=== PATIENT | male | born 1945 | race Caucasian/White ===

== ENCOUNTER 2016-07-18 13:25 | Inpatient (IN) | payer MEDICARE ==
--- NOTE | ~2016-07-18 | OP ---
Record Of [address] [place]. [address] NAME: MICHAELA CHILDERS : 47 STATUS : ADM IN PAT#: [id number] AGE: 70 ADM/REG DATE : 07/18/16 MR#: [id number] REPORT SERV DATE: 07/22/16 DICTATED BY: LEE HOLLOWAY DATE: 07/21/16 REPORT STATUS : Draft TRANSCRIBED BY: MODL DATE: 07/21/16 DATE OF PROCEDURE: 07/21/2016 TIRE STRIPPER: Radha Miller. ANESTHESIOLOGIST: Dr. Javy Costa. PREOPERATIVE DIAGNOSES: 1. Non-ST segment elevation myocardial infarction. 2. Hypertension. 3. Three-vessel coronary disease. 4. Prior coronary artery bypass grafting in 1997. 5. Hyperlipidemia. POSTOPERATIVE DIAGNOSES: 1. Non-ST segment elevation myocardial infarction. 2. Hypertension. 3. Three-vessel coronary disease. 4. Prior coronary artery bypass grafting in 1997. 5. Hyperlipidemia. OPERATION PROCEDURE PERFORMED: 1. Redo sternotomy. 2. Extracorporeal circulation. 3. Lysis of dense pericardial adhesions. 4. Urgent coronary artery bypass grafting x2, left internal mammary artery or left anterior descending, right internal mammary artery to right coronary artery. 5. LEXIS. 6. Rigid external fixation of sternum using the SternaLock Ryne system and Prevena dressing placement. COMPLICATIONS: None. TUBES AND DRAINS: A 24-Danish Michael to the left pleural space. A 24-Danish Michael to the right pleural space. A 32-Danish anterior mediastinal chest tube. Atrial and ventricular wires. POSTOPERATIVE CONDITION: Weaned on dobutamine. TOTAL CROSS-CLAMP: 35 minutes. TOTAL CARDIOPULMONARY BYPASS TIME: 100 minutes. TRANSESOPHAGEAL ECHO: Showed EF approximately 50%-55%. No AI, no , no MR. INTRAOPERATIVE FINDINGS: Record Of [address] [place]. [address] NAME: MICHAELA CHILDERS : 46 STATUS : ADM IN PAT#: [id number] AGE: 70 ADM/REG DATE : 07/18/16 MR#: [id number] REPORT SERV DATE: 07/22/16 DICTATED BY: LEE HOLLOWAY DATE: 07/21/16 REPORT STATUS : Draft TRANSCRIBED BY: MODL DATE: 05/23/17 1. There were dense pericardial adhesions. There were excellent DESTIN and BRITT grafts. The old grafts were seen as follows. The reversed greater saphenous vein graft to LAD which was completely occluded, totally occluded at its origin, and the reversed greater saphenous vein graft to what appeared to be obtuse marginal. 2. This graft was patent and was not disturbed during the bypass. DETAILS OF CARDIOPULMONARY BYPASS GRAFTIN. Left internal mammary artery to left anterior descending. This was 1.75 mm target. 2. DESTIN to distal RCA. This was a 2.5 mm target with some diffuse disease, thickened wall. There were excellent Doppler signals both pre and post protamine. DETAILS OF STERNAL PLATING: Rigid external fixation of the sternum was performed after sternal closure with stainless steel sternal wires. One 100-degree SternaLock Ryne plate was placed on the manubrium and anchored with four 16 mm screws and two X-plates were placed on the body of the sternum and anchored with eight 16 mm screws apiece. INDICATIONS FOR PROCEDURE: Mr. Childers is a 70-year-old gentleman, who underwent coronary artery bypass grafting in 1997 with two-vessel bypass. He did well until the weekend prior to his operation when he presented with acute chest pain and underwent coronary catheterization for troponin elevation, acute coronary syndrome. He was found to have a completely occluded saphenous vein graft to what we later determined was this LAD, a patent saphenous vein graft to his obtuse marginal system, and a 90% ostial RCA and a 90% left main, with a 90% proximal LAD lesion as well. Risks, benefits, alternatives were discussed with the patient including but not limited to, bleeding, infection, stroke, , heart attack, need for future operations. All questions were answered. The STS risk was calculated and discussed with the patient. Risk mortality less than 5%, total risk complications less than 20% were discussed with the patient. DETAILS OF PROCEDURE: The patient was brought to the operating room, placed supine on the operating room table. After satisfactory induction of general endotracheal anesthesia, was prepped and draped in the usual sterile fashion. A right femoral A-line and left femoral venous sheaths were placed percutaneously using modified Seldinger technique, anchored into position. The existing sternotomy scar was open. Skin and subcutaneous tissues were divided using electrocautery down to the sternal wires. Sternal wires were dissected out, grasped, elevated and cut and then removed using sternal wire drivers. Sternum was then opened in the midline using the oscillating saw. Hemostasis was obtained. The sternal edges were then gently elevated and dissected off the underlying contents of the mediastinum, enough to where a sternal retractor could be placed. Once this was done, dissection was carried out down to the pericardium to develop the pericardial sac and the contents of the pericardium. Dense pericardial adhesions were lysed, starting at the diaphragmatic surface of the heart and working my way up along the right atrial side up to the aorta. The two bypass grafts were visualized and the ascending aorta was swept clear of adhesed tissue until appropriate placement of cannulation was found in appropriate side, placed on the sidewall of the right atrium. At this point, the internal mammary arteries were harvested in a pedicle fashion. The Rultract retractor was placed first on the left and the internal mammary artery was harvested from its takeoff from the subclavian vein to the bifurcation of the diaphragm. It was infiltrated with papaverine. Attention was then Record Of Operation [address] [place]. [address] NAME: MICHAELA CHILDERS : 47 STATUS : ADM IN [facility]#: [id number] AGE: 70 ADM/REG DATE : 07/18/16 MR#: [id number] REPORT SERV DATE: 07/22/16 DICTATED BY: LEE HOLLOWAY DATE: 07/21/16 REPORT STATUS : Draft TRANSCRIBED BY: BERLIN DATE: 07/21/16 turned to the right chest, the internal mammary artery was harvested from its takeoff under the subclavian vein to the bifurcation of the diaphragm. Systemic heparinization was achieved. After 3 minutes, the pedicle was clipped and divided. The bifurcation of the diaphragm wrapped in a papaverine soaked sponge. Attention was turned to the left and the same was done. Sternal retractor was placed. The ascending aortic cannulation was achieved through dual pursestring at the base of the innominate artery. Dual stage venous cannula was placed through pursestring in the right atrial side wall. Antegrade root vent cardioplegia tack was placed and cardiopulmonary bypass was initiated after documentation of an adequate ACT. Further lysis of adhesions was carried out in order to free the heart from its pericardial adhesions. Once enough was done, to be able to identify the left anterior descending and the RCA, cross-clamp was brought up. The heart was arrested with cold antegrade cardioplegia. The right internal mammary artery was brought down along the right atrial side wall and was anastomosed to the distal RCA using 8-0 Surgipro. Bulldog was removed from the graft and there was excellent flow in the graft. The bulldog was replaced. The cardioplegia was readministered and the internal mammary artery on the left was brought down through a widening in the pericardium and anastomosed to the left anterior descending using 8-0 Surgipro. The pedicle of the grafts were attached to the epicardium in two places using 6-0 Prolene. Bulldogs were removed. There was excellent flow in both grafts. Cross- clamp was removed. Atrial and ventricular pacing wires were placed and exteriorized. The heart returned to spontaneous sinus rhythm and the patient was able to be weaned from cardiopulmonary bypass on 5 mcg/kilogram/minute of dobutamine, rapidly moving down to 2.5. The protamine was administered. The patient was decannulated. All cannulation sites were oversewn with 4-0 Prolene. Hemostasis was obtained. A 32-Danish chest tube was placed under the sternum. Two 24-Danish Michael drains were placed, one in each pleural space and exteriorized. The hemostasis was obtained along the chest wall and in the mediastinum. The thymic tissue was loosely reapproximated over the ascending aorta. There was no real tissue to pull back together over the right ventricle. The sternum was reapproximated using eight stainless steel sternal wires, some of these were double wires. The pectoral flaps were raised to the edge of the sternum and 3 Biomet SternaLock Ryne plates were placed, one 100- degree plate on the manubrium, and two X-plates placed on the body of the sternum between the sternal wires. Clavipectoral fascia was reapproximated using running #1 StrataFix. Subcutaneous tissue was closed using running #1 StrataFix. Prevena dressing was placed. The patient was transferred to CVICU in critical, stable condition. HAYLIE/MODL Lee Holloway MD / [id number] CC: Lee Holloway MD
--- NOTE | ~2016-07-18 | CN ---
Consultation Report [facility] [address] [place]. [address] NAME: MICHAELA CHILDERS : 47 STATUS : ADM IN PAT#: [id number] AGE: 70 ADM/REG DATE : 07/18/16 MR#: [id number] REPORT SERV DATE: 07/19/16 DICTATED BY: CASSANDRA KLINE DATE: 07/19/16 REPORT STATUS : Draft TRANSCRIBED BY: MODL DATE: 07/19/16 CONSULTATION REPORT DATE OF CONSULTATION: 07/18/2016 REASON FOR CONSULTATION: Multivessel coronary artery disease. HISTORY OF PRESENT ILLNESS: This is a pleasant 70-year-old male with a history of coronary artery disease, status post coronary artery bypass grafting in [address] Trinh, which was thought to be two vessels, but no op note is available to confirm this. The patient has been in his normal state of health until around last month, when he started experiencing some chest pain. These symptoms continued until they worsened yesterday, prompting his visit to the emergency room. In the emergency room, he was found to have an initial troponin of 2.4, which later royal to over 36 consistent with non-ST elevation [place]. The patient was taken for cardiac catheterization last night, and found to have multivessel disease with patent SVG to his obtuse marginal and occluded SVG graft at its origin, 90% left main coronary artery stenosis, 99% proximal LAD, 100% occlusion to the left circ, 90% occlusion of the ramus, and 90% proximal RCA with ejection fraction around 40% and wall motion abnormality of the left ventricle with no mention of valvular abnormality. CT Surgery was consulted for evaluation of redo coronary artery bypass grafting. Currently, the patient feels well with no complaints. He did experience some chest pain last night, which resolved with morphine. His vital signs are stable and labs appear to be okay. PAST MEDICAL HISTORY: High blood pressure, coronary artery disease, hyperlipidemia, and osteoarthritis. PAST SURGICAL HISTORY: Left knee replaced, CV x2 in 1997, and inguinal hernia repair. SOCIAL HISTORY: He is retired. Lives alone, with two grown children. No tobacco abuse, alcohol abuse, or use of illicit drugs. FAMILY HISTORY: Reviewed and noncontributory. ALLERGIES: HE IS ALLERGIC TO CODEINE. HOME MEDICATIONS: Aspirin 81 mg per day, vitamin D3 1000 units p.o. daily, CoQ10 of 200 mg p.o. daily, Cardura 4 mg at bedtime, Hyzaar one tab p.o. daily, Singulair 10 mg p.o. daily as needed, fish oil 1000 mg p.o. daily, Pravachol 40 mg p.o. at bedtime, Zantac 150 mg p.o. daily as needed and Nasacort one spray nasally daily. REVIEW OF SYSTEMS: A 10-point review of systems was obtained and is negative other than HPI. LABS: White blood cell count 8.9, hemoglobin 15.3, hematocrit 44.7, and platelets 206. Consultation Report [place] [id number] [facility] [place]. [address] NAME: MICHAELA CHILDERS : 47 STATUS : ADM IN [facility]#: [id number] AGE: 70 ADM/REG DATE : 07/18/16 MR#: [id number] REPORT SERV DATE: 07/19/16 DICTATED BY: CASSANDRA KLINE DATE: 07/19/16 REPORT STATUS : Draft TRANSCRIBED BY: BERLIN DATE: 07/19/16 Sodium 141, potassium 4.4, chloride 109, bicarbonate 29, BUN 14, creatinine 0.9, and glucose 119. PHYSICAL EXAMINATION: VITAL SIGNS: Today temperature 98.3, heart rate 61, blood pressure 110/59, respiratory rate 16, and O2 saturation 97% on 2 L. GENERAL: Pleasant, fit, male in no acute distress. NEURO: Alert and oriented x3. Pupils are equal, round, and reactive to light and accommodation. He exhibits equal strength at bilateral upper extremities and bilateral lower extremities. HEENT: Head normocephalic and atraumatic. Sclerae clear. Nose midline with no abnormalities. Good dentition overall. Ears with no abnormalities. NECK: Supple. No thyromegaly or lymphadenopathy. CARDIAC: S1, S2. No murmurs, rubs, or gallops. Regular rate and rhythm with no bruits appreciated upon auscultation of carotids. LUNGS: Clear to auscultation bilaterally with normal effort. ABDOMEN: Soft, nontender, with active bowel sounds. EXTREMITIES: Free of cyanosis or clubbing. He has trace bilateral lower extremity edema. ASSESSMENT/PLAN: This is a pleasant 70-year-old male with a history of coronary artery disease, status post coronary artery bypass grafting in 1997, which was thought to be two vessel, but we do not have an op note in our system at this time. We will look for that at in our office on Wednesday. The patient has been in his normal state of health until recently, when he started experiencing chest pain. Came in with NSTEMI yesterday and now found to have a significant three-vessel disease with decreased EF and wall motion abnormality of the left ventricle. Troponin elevated at 36. Needs a bypass grafting, but due to significance of infarction it was thought to be best to wait a couple of days before proceeding. Discussed the plan of care with Dr. Walker and Dr. Wesley. Dr. Wesley reviewed the imaging. We would like to get an echocardiogram and carotid ultrasound as well as a contrasted CT scan of the chest before proceeding with surgery. We will plan surgical intervention for sometime [id number] week. We appreciate the consultation. Please let us know if we could be of any further assistance. NEYDA/BERLIN Cassandra Kline NP / [id number] CC: Sudhakar Walker M.D.
--- NOTE | ~2016-07-18 | PRECARD ---
H&P PRE [facility] [address] [place]. [address] NAME: MICHAELA CHILDERS : 47 STATUS : ADM IN [facility]#: [id number] AGE: 70 ADM/REG DATE : 07/18/16 MR#: [id number] REPORT SERV DATE: 07/18/16 DICTATED BY: ZULEIKA RAMIREZ DATE: 07/18/16 REPORT STATUS : Draft TRANSCRIBED BY: BERLIN DATE: 07/18/16 DATE OF ADMISSION: 07/18/2016 TOBACCO WEIGHER: Unknown. CHIEF COMPLAINT: Chest pain. REASON FOR ADMISSION: Chest pain. SOURCE: Patient and chart. HISTORY OF PRESENT ILLNESS: Mr. Childers is a very pleasant 70-year-old white man with a history of coronary artery disease, status post coronary bypass grafting in [address] Trinh at [facility] possibly to three vessels, but op report not available. He was in his usual state of health until 8:30 this morning, when he developed chest pain just sitting in his chair at home, up to 9/10 in severity. He has been having intermittent chest pains over the past month or so. He did not have any associated nausea, vomiting, dyspnea, or diaphoresis. He came to [facility] ER and had an EKG. After his second EKG, code STEMI was called, and the greenhouse laborer was activated. Upon my review, he did not have ST elevation, but did have elevated troponin and T-wave inversion, and evidence of non ST- segment elevation myocardial infarction. He was brought to the cardiac catheterization laboratory for cardiac catheterization. His pain was nearly resolved at the time of the procedure. REVIEW OF SYSTEMS: All other systems are negative. ALLERGIES: CODEINE. MEDICATIONS: As per his home list, not yet available. CARDIAC RISK FACTORS: Include hypertension and cholesterol. Denies diabetes, tobacco, or family history. SOCIAL HISTORY: The patient lives in [place], [place]. He is single. He has two children, alive and well. He is retired. FAMILY HISTORY: Negative for coronary artery disease at young age. PAST MEDICAL HISTORY: Significant for coronary artery disease, status post coronary artery bypass grafting [place] [address] Trinh at [facility]. Status post left knee replacement, 12/2012. Inguinal herniorrhaphy, 11/2013. PHYSICAL EXAMINATION: GENERAL: He is a well-developed, well-nourished, elderly white man, in no acute distress. VITAL SIGNS: Stable. Grossly afebrile. H&P PRE [address] [address] NAME: MICHAELA CHILDERS : 47 STATUS : ADM IN PAT#: [id number] AGE: 70 ADM/REG DATE : 07/18/16 MR#: [id number] REPORT SERV DATE: 07/18/16 DICTATED BY: ZULEIKA RAMIREZ DATE: 07/18/16 REPORT STATUS : Draft TRANSCRIBED BY: EBRLIN DATE: 07/18/16 HEENT: Sclerae anicteric. Lips without cyanosis. NECK: Carotids 2+ and symmetrical. No JVD. No thyromegaly. LUNGS: Clear anteriorly. No use of accessory muscles. HEART: Regular rate and rhythm. Without murmur, gallop, or rub. ABDOMEN: Positive bowel sounds. Soft, nontender. EXTREMITIES: Pulses 2+ and symmetrical. No cyanosis, clubbing, or edema. BACK: No CVA tenderness. MUSCULOSKELETAL: Good tone. NEURO: Alert and oriented x3. IMAGING: EKG reveals sinus rhythm with septal T-wave inversion. LABS: Remarkable for troponin of 2.4 and glucose approximately 120. Creatinine was normal. IMPRESSION: 1. Non ST-segment elevation myocardial infarction. There is no ST elevation to my review of EKG. 2. Now pain-free. 3. Coronary artery disease, status post coronary artery bypass grafting in [address] [facility] [address] Trinh. Report not available. 4. Hypertension. 5. Hyperlipidemia. 6. Elevated nonfasting glucose. RECOMMENDATIONS: 1. Emergent cardiac catheterization grafts and possible angioplasty already done. See report. 2. Aspirin, nitrate, heparin. 3. Beta-jatin therapy. 4. Statin therapy. 5. Evaluate for a redo coronary bypass grafting possibly using HILTON conduits. Consult CV Surgery. Check carotid ultrasound. Check urinalysis. 6. See orders. MITCH/BERLIN Zuleika Ramirez M.D. / [id number] CC: Zuleika Ramirez M.D. Gil Peterson MD
--- NOTE | ~2016-07-18 | DS ---
Discharge Summary [facility] [address] [facility] [place]. [address] NAME: MICHAELA CHILDERS : 47 STATUS : DIS IN PAT#: [id number] AGE: 70 ADM/REG DATE : 07/18/16 MR#: [id number] REPORT SERV DATE: 08/04/16 DICTATED BY: DASH HOLLOWAY DATE: 08/03/16 REPORT STATUS : Draft TRANSCRIBED BY: BERLIN DATE: 08/03/16 Data Collection from hospitalization DISCHARGE DIAGNOSES: 1. Coronary artery disease. 2. Dhw-JB-vjlgykwqk myocardial infarction. 3. Hypertension. 4. Hyperlipidemia. 5. Osteoarthritis. CONSULTATION: Dr. Sudhakar Walker. PROCEDURES PERFORMED: 1. Cardiac catheterization and percutaneous coronary intervention, 07/18/2016. 2. Redo sternotomy extracorporeal circulation; lysis of dense pericardial adhesions; urgent coronary artery bypass grafting x2 with BRITT to the LAD; right internal mammary artery to the right coronary artery; transesophageal echocardiogram; rigid external fixation of sternum using the SternaLock Ryne System and Prevena dressing placement, 07/21/2016. 3. CTA of the chest on 07/19/2016. 4. Carotid blood flow study, 07/20/2016. 5. Vein mapping of the bilateral lower extremities, 07/20/2016. DISCHARGE MEDICATIONS: Halfprin 81 mg daily, Lipitor as instructed, vitamin D3 1000 units daily, Plavix 75 mg daily, CoQ10 200 mg daily, [place] 10/325 one tablet every six hours as needed, Lopressor 12.5 mg twice a day, Singulair 10 mg daily as needed, fish oil 1000 mg daily, Zantac 150 mg daily as needed, Nasacort AQ one spray daily. He was instructed not to continue doxazosin, pravastatin, losartan/hydrochlorothiazide. CONDITION AT DISCHARGE: Stable. DISPOSITION: The patient was discharged home on a low-sodium, low-cholesterol, cardiac diet with activities as instructed. He would follow up with me four weeks following discharge. He would follow up with Dr. Sudhakar Walker, 09/04/2016. HOSPITAL COURSE: This is a 70-year-old man, who has a history of coronary artery disease and is status post coronary artery bypass grafting in [address]h, possibly to three- vessels. This op report was not available. He had been in his usual state of health until the morning of this admission, when he developed chest pain sitting in his chair at home, up to 9/10 in severity. He had been having intermittent chest pain over the past month or so. He did not have any associated nausea, vomiting, dyspnea, or diaphoresis. He came to the [facility] emergency room and had an EKG. After his second EKG, a code STEMI was called. The supervisor labor gang was activated. He was seen by Dr. Sudhakar Walker. On his review, the patient did not have ST elevation, but he did have elevated troponin and T-wave inversion and evidence of ymt-KV-bzpjkrs elevation myocardial infarction. His chest pain had nearly resolved at the time of the procedure. He was admitted to the hospital for further evaluation and treatment. Discharge Summary [place] [id number] [facility] [place]. [address] NAME: MICHAELA CHILDERS : 47 STATUS : DIS IN PAT#: [id number] AGE: 70 ADM/REG DATE : 07/18/16 MR#: [id number] REPORT SERV DATE: 08/04/16 DICTATED BY: DASH HOLLOWAY DATE: 08/03/16 REPORT STATUS : Draft TRANSCRIBED BY: BERLIN DATE: 08/03/16 Upon admission, he was taken to the cardiac supervisor labor gang, where he underwent the above-mentioned procedure by Dr. Sudhakar Walker. He tolerated this well and there were no complications. The patient was found to have multivessel disease with patent saphenous vein graft to the obtuse marginal and occluded saphenous vein graft at its origin, 90% left main coronary artery stenosis, 99% proximal LAD, 100% occlusion to the left circumflex, 90% occlusion of the ramus, and 90% proximal RCA with ejection fraction around 40% and wall motion abnormality of the left ventricle with no mention of valvular abnormality. It was felt that the patient would need to undergo redo coronary artery bypass grafting. He had had some chest pain during the night, which resolved with morphine. The following day, a CTA of the chest was performed. He was in a sinus rhythm. Hemoglobin A1c was checked and was normal. Blood pressure was under good control. On 07/20/2016, a carotid blood flow study was performed as well as vein mapping of the bilateral lower extremities. Plans were being made to proceed with surgical intervention. On 07/21/2016, he had no new issues. He had no complaints. He denied chest pain or pressure, shortness of breath or palpitations. Hemoglobin A1c was 6.0. Glucose levels were elevated. Sliding scale insulin level 1 was started. On postop day one, he was up sitting in a chair. He was doing well. He did have some sternal discomfort, but otherwise was comfortable. His lungs were clear. Resendez catheter was removed. We encouraged him to mobilize. He was encouraged to increase his activity. On postop day two, his sternum was still sore. He did have bibasilar atelectasis. On his chest x-ray, metoprolol was continued. White count was 13.6. He continued to progress. Discharge planning was performed. We encouraged him to use pulmonary toilet and use incentive spirometry. Diuresis was being performed. On 07/25/2016, he had no complaints. Discharge instructions were given. Due to his improved and stable condition, he was discharged home with the above-stated instructions. Information collected by: Kelly Bosch I submit the above information as my discharge summary. TG/MODL Dash Holloway MD / [id number] CC: Xavi Carson MD
[~2016-07-18 13:25] MED LIST: ACET500CAP PO; ALEVE220 MG PO; ASAB PO; BENICAR20 PO; C5 PO; CARDU4 PO; CO Q-10100 MG PO; CO Q-10200 MG PO; DIL2TAB PO; FISH-EPA1000 MG PO; HALF81 PO; HYZAAR 100/25 T1 TAB PO; MOBIC15 MG PO; NASACORTAQ NAS; PRAVACHOL40 MG PO; SINGULAIR1 PO; SUPER B-100 OR; VITAMIN D31000 UNIT PO; ZANTAC 150 PO
[2016-07-18 13:33] LABS: BASOPHILS 0.2 %; BASOPHILS ABSOLUTE 0.02 10/3/uL (0.0-0.16); EOSINOPHILS 0.3 %; EOSINOPHILS ABSOLUTE 0.03 10/3/uL (0.0-0.53); HEMATOCRIT 45.1 % (40.0-51.0); HEMOGLOBIN 15.7 g/dL (13.6-17.8); IMMATURE GRANULOCYTES 0.4 %; IMMATURE GRANULOCYTES ABSOLUTE 0.04 10/3/uL (0.0-0.11); LYMPHOCYTES 11.1 %; LYMPHOCYTES ABSOLUTE 1.12 10/3/uL (0.67-4.30); MEAN CORPUS HGB CONC 34.8 g/dL (32.0-36.0); MEAN CORPUSCULAR HEMOGLOB 32.6 pg (26.0-34.0); MEAN CORPUSCULAR VOLUME 93.6 fL (80-100); MEAN PLATELET VOLUME 10.4 fL (9.2-13.0); MONOCYTES 5.2 %; MONOCYTES ABSOLUTE 0.53 10/3/uL (0.21-1.20); NEUTROPHILS 82.8 %; NEUTROPHILS ABSOLUTE 8.38 10/3/uL (2.02-8.40); PLATELET COUNT 220 10/3/uL (150-400); RBC DISTRIBUTION WIDTH 12.8 % (12.0-16.0); RED CELL COUNT 4.82 10/6/uL (4.7-6.1)
[2016-07-18 13:34] LABS: MANUAL DIFF NO %; WHITE BLOOD CELLS 10.1 10/3/uL (4.5-10.5)
[2016-07-18 13:41] LABS: INTERNATIONAL NORMAL RATI 1.1 UNITS (-); PARTIAL THROMBO TIME 28.8 SEC (22.5-37.2); PROTIME (NOT ORD) 14.3 SEC (12.0-14.5)
[2016-07-18 13:49] LABS: BUN (BLOOD UREA NITROGEN) 14 MG/DL (6-23); CALCIUM, SERUM 8.7 MG/DL (8.5-10.4); CHLORIDE, SERUM 106 MMOL/L (96-112); CO2 (CARBON DIOXIDE) 28 MMOL/L (24-34); CREATININE 0.86 MG/DL (0.70-1.30); GFR AFRICAN AMERICAN 103 ML/MIN (>=60); GFR NON AFRICAN AMERICAN 88 ML/MIN (>=60); GLUCOSE, SERUM 127 MG/DL (60-99); POTASSIUM, SERUM 4.1 MMOL/L (3.5-5.3); SODIUM, SERUM 140 MMOL/L (135-148)
[2016-07-18 13:51] LABS: CHEST PAIN PROFILE TAT 0 Hrs 21 Mins; TROPONIN I 2.59 NG/ML (<0.05)
[2016-07-18 17:47] LABS: CK-MB 61.2 NG/ML
[2016-07-18 17:48] LABS: CKMB INDEX (NOT ORD) 10.8
[2016-07-18 22:27] LABS: ASCORBIC ACID (UR NOT ORDER) NEG (NEG); BILIRUBIN, URINE NEGATIVE (NEG); KETONE, URINE NEGATIVE (NEG); LEUKOCYTE ESTERASE(NOT OR NEG (NEG); WBC (NOT ORDERED) (RFLEX) < 1 (0-5)
[2016-07-19 04:14] LABS: BASOPHILS 0.2 %; BASOPHILS ABSOLUTE 0.02 10/3/uL (0.0-0.16); EOSINOPHILS 1.7 %; EOSINOPHILS ABSOLUTE 0.15 10/3/uL (0.0-0.53); HEMATOCRIT 44.7 % (40.0-51.0); HEMOGLOBIN 15.3 g/dL (13.6-17.8); IMMATURE GRANULOCYTES 0.3 %; IMMATURE GRANULOCYTES ABSOLUTE 0.03 10/3/uL (0.0-0.11); LYMPHOCYTES 24.8 %; LYMPHOCYTES ABSOLUTE 2.21 10/3/uL (0.67-4.30); MEAN CORPUS HGB CONC 34.2 g/dL (32.0-36.0); MEAN CORPUSCULAR HEMOGLOB 32.4 pg (26.0-34.0); MEAN CORPUSCULAR VOLUME 94.7 fL (80-100); MEAN PLATELET VOLUME 10.6 fL (9.2-13.0); MONOCYTES 7.7 %; MONOCYTES ABSOLUTE 0.69 10/3/uL (0.21-1.20); NEUTROPHILS 65.3 %; NEUTROPHILS ABSOLUTE 5.81 10/3/uL (2.02-8.40); PLATELET COUNT 206 10/3/uL (150-400); RBC DISTRIBUTION WIDTH 12.9 % (12.0-16.0); RED CELL COUNT 4.72 10/6/uL (4.7-6.1); WHITE BLOOD CELLS 8.9 10/3/uL (4.5-10.5)
[2016-07-19 04:15] LABS: MANUAL DIFF NO %
[2016-07-19 04:32] LABS: A/G RATIO 1.1 (0.7-1.9); ALBUMIN 3.4 G/DL (3.5-5.0); ALKALINE PHOSPHATASE 70 U/L (45-117); BUN (BLOOD UREA NITROGEN) 14 MG/DL (6-23); CALCIUM, SERUM 8.5 MG/DL (8.5-10.4); CHLORIDE, SERUM 109 MMOL/L (96-112); CHOL/HDL RATIO(NOT ORDER) 3.3 (0-5); CHOLESTEROL 131 MG/DL (< 200); CO2 (CARBON DIOXIDE) 29 MMOL/L (24-34); CPK (IF ELEVATED MB BANDS) 739 U/L (0-200); CREATININE 0.94 MG/DL (0.70-1.30); GFR AFRICAN AMERICAN 95 ML/MIN (>=60); GFR NON AFRICAN AMERICAN 82 ML/MIN (>=60); GLOBULIN 3.1 G/DL (2.5-4.1); GLUCOSE, SERUM 119 MG/DL (60-99); HDL CHOLESTEROL 40 MG/DL (> 39); LDL CHOLESTEROL 68 MG/DL (< 130); NON-HDL CHOLESTEROL 91 MG/DL (< 160); POTASSIUM, SERUM 4.4 MMOL/L (3.5-5.3); SGOT(AST) 132 U/L (5-40); SGPT(ALT) 41 U/L (5-65); SODIUM, SERUM 141 MMOL/L (135-148); TOTAL BILIRUBIN 1.1 MG/DL (0-1.2); TOTAL PROTEIN 6.5 G/DL (6.0-8.5); TRIGLYCERIDE 117 MG/DL (< 150)
[2016-07-19 05:59] LABS: CK-MB 77.4 NG/ML; CKMB INDEX (NOT ORD) 10.5
[2016-07-20 04:45] LABS: BASOPHILS 0.1 %; BASOPHILS ABSOLUTE 0.01 10/3/uL (0.0-0.16); EOSINOPHILS 2.8 %; EOSINOPHILS ABSOLUTE 0.19 10/3/uL (0.0-0.53); HEMATOCRIT 45.5 % (40.0-51.0); HEMOGLOBIN 15.6 g/dL (13.6-17.8); IMMATURE GRANULOCYTES 0.3 %; IMMATURE GRANULOCYTES ABSOLUTE 0.02 10/3/uL (0.0-0.11); LYMPHOCYTES 23.1 %; LYMPHOCYTES ABSOLUTE 1.59 10/3/uL (0.67-4.30); MEAN CORPUS HGB CONC 34.3 g/dL (32.0-36.0); MEAN CORPUSCULAR HEMOGLOB 32.6 pg (26.0-34.0); MEAN CORPUSCULAR VOLUME 95.2 fL (80-100); MEAN PLATELET VOLUME 10.8 fL (9.2-13.0); MONOCYTES 9.1 %; MONOCYTES ABSOLUTE 0.63 10/3/uL (0.21-1.20); NEUTROPHILS 64.6 %; NEUTROPHILS ABSOLUTE 4.45 10/3/uL (2.02-8.40); PLATELET COUNT 208 10/3/uL (150-400); RBC DISTRIBUTION WIDTH 12.6 % (12.0-16.0); RED CELL COUNT 4.78 10/6/uL (4.7-6.1); WHITE BLOOD CELLS 6.9 10/3/uL (4.5-10.5)
[2016-07-20 04:46] LABS: MANUAL DIFF NO %
[2016-07-20 05:08] LABS: BUN (BLOOD UREA NITROGEN) 13 MG/DL (6-23); CALCIUM, SERUM 8.5 MG/DL (8.5-10.4); CHLORIDE, SERUM 109 MMOL/L (96-112); CO2 (CARBON DIOXIDE) 27 MMOL/L (24-34); CPK (IF ELEVATED MB BANDS) 211 U/L (0-200); GFR AFRICAN AMERICAN 106 ML/MIN (>=60); GFR NON AFRICAN AMERICAN 91 ML/MIN (>=60); GLUCOSE, SERUM 112 MG/DL (60-99); POTASSIUM, SERUM 3.9 MMOL/L (3.5-5.3); SODIUM, SERUM 138 MMOL/L (135-148)
[2016-07-20 05:25] LABS: CK-MB 13.7 NG/ML
[2016-07-20 05:26] LABS: CKMB INDEX (NOT ORD) 6.5
[2016-07-20 12:53] LABS: BASOPHILS 0.3 %; BASOPHILS ABSOLUTE 0.02 10/3/uL (0.0-0.16); EOSINOPHILS ABSOLUTE 0.16 10/3/uL (0.0-0.53); HEMATOCRIT 45.5 % (40.0-51.0); HEMOGLOBIN 15.9 g/dL (13.6-17.8); IMMATURE GRANULOCYTES 0.3 %; IMMATURE GRANULOCYTES ABSOLUTE 0.02 10/3/uL (0.0-0.11); LYMPHOCYTES 21.3 %; LYMPHOCYTES ABSOLUTE 1.67 10/3/uL (0.67-4.30); MEAN CORPUS HGB CONC 34.9 g/dL (32.0-36.0); MEAN CORPUSCULAR HEMOGLOB 32.9 pg (26.0-34.0); MEAN PLATELET VOLUME 10.5 fL (9.2-13.0); MONOCYTES 6.5 %; MONOCYTES ABSOLUTE 0.51 10/3/uL (0.21-1.20); NEUTROPHILS 69.6 %; NEUTROPHILS ABSOLUTE 5.47 10/3/uL (2.02-8.40); PLATELET COUNT 217 10/3/uL (150-400); RBC DISTRIBUTION WIDTH 12.8 % (12.0-16.0); RED CELL COUNT 4.84 10/6/uL (4.7-6.1); WHITE BLOOD CELLS 7.9 10/3/uL (4.5-10.5)
[2016-07-20 12:54] LABS: MANUAL DIFF NO %
[2016-07-20 13:00] LABS: INTERNATIONAL NORMAL RATI 1.1 UNITS (-); PROTIME (NOT ORD) 14.1 SEC (12.0-14.5)
[2016-07-20 13:01] LABS: PARTIAL THROMBO TIME 73.5 SEC (22.5-37.2)
[2016-07-20 13:09] LABS: ALBUMIN 3.6 G/DL (3.5-5.0); BUN (BLOOD UREA NITROGEN) 16 MG/DL (6-23); CALCIUM, SERUM 9.1 MG/DL (8.5-10.4); CHLORIDE, SERUM 105 MMOL/L (96-112); CO2 (CARBON DIOXIDE) 26 MMOL/L (24-34); CREATININE 0.96 MG/DL (0.70-1.30); GFR AFRICAN AMERICAN 93 ML/MIN (>=60); GFR NON AFRICAN AMERICAN 80 ML/MIN (>=60); GLUCOSE, SERUM 131 MG/DL (60-99); POTASSIUM, SERUM 4.2 MMOL/L (3.5-5.3); SGOT(AST) 59 U/L (5-40); SGPT(ALT) 34 U/L (5-65); SODIUM, SERUM 140 MMOL/L (135-148); TOTAL PROTEIN 7.4 G/DL (6.0-8.5)
[2016-07-20 13:10] LABS: A/G RATIO 0.9 (0.7-1.9); ALKALINE PHOSPHATASE 85 U/L (45-117); GLOBULIN 3.8 G/DL (2.5-4.1); TOTAL BILIRUBIN 0.5 MG/DL (0-1.2)
[2016-07-20 16:22] LABS: CPK 160 U/L (0-200)
[2016-07-21 02:38] LABS: ALBUMIN 3.6 G/DL (3.5-5.0); ALKALINE PHOSPHATASE 81 U/L (45-117); BUN (BLOOD UREA NITROGEN) 16 MG/DL (6-23); CHLORIDE, SERUM 105 MMOL/L (96-112); CREATININE 1.03 MG/DL (0.70-1.30); GFR AFRICAN AMERICAN 86 ML/MIN (>=60); GFR NON AFRICAN AMERICAN 74 ML/MIN (>=60); GLOBULIN 3.7 G/DL (2.5-4.1); GLUCOSE, SERUM 112 MG/DL (60-99); POTASSIUM, SERUM 4.7 MMOL/L (3.5-5.3); SGOT(AST) 45 U/L (5-40); SGPT(ALT) 34 U/L (5-65); SODIUM, SERUM 143 MMOL/L (135-148); TOTAL BILIRUBIN 0.6 MG/DL (0-1.2); TOTAL PROTEIN 7.3 G/DL (6.0-8.5)
[2016-07-21 02:39] LABS: CO2 (CARBON DIOXIDE) 32 MMOL/L (24-34)
[2016-07-21 19:16] LABS: TEG - ANGLE 65.1 DEG (53-72); TEG - MAXIMUM AMPLITUDE 62.7 MM (50-70); TEG - RATE 5.9 MIN (5.0-10.0)
[2016-07-21 19:17] LABS: TEG - COAGULATION INDEX 0.4 (-3 TO 3)
[2016-07-21 19:34] LABS: HEMATOCRIT 35.4 % (40.0-51.0); HEMOGLOBIN 12.1 g/dL (13.6-17.8)
[2016-07-21 19:35] LABS: PLATELET COUNT 143 10/3/uL (150-400)
[2016-07-21 19:42] LABS: INTERNATIONAL NORMAL RATI 1.5 UNITS (-); PARTIAL THROMBO TIME 30.1 SEC (22.5-37.2)
[2016-07-21 19:45] LABS: PROTIME (NOT ORD) 17.9 SEC (12.0-14.5)
[2016-07-21 19:47] LABS: BUN (BLOOD UREA NITROGEN) 16 MG/DL (6-23); CALCIUM, SERUM 8.1 MG/DL (8.5-10.4); CHLORIDE, SERUM 112 MMOL/L (96-112); CO2 (CARBON DIOXIDE) 28 MMOL/L (24-34); CREATININE 1.01 MG/DL (0.70-1.30); GFR AFRICAN AMERICAN 88 ML/MIN (>=60); GFR NON AFRICAN AMERICAN 76 ML/MIN (>=60); GLUCOSE, SERUM 107 MG/DL (60-99); POTASSIUM, SERUM 4.2 MMOL/L (3.5-5.3); SODIUM, SERUM 144 MMOL/L (135-148)
[2016-07-21 23:59] LABS: BE (BASE EXCESS) -3.5 MEQ/L (0 +/- 2.5); CARBOXYHEMOGLOBIN 0.2 % (0-3); DEVICE NC; HCO3 (ACTUAL BICARBONATE) 22.2 MEQ/L (23-27); HEMOBLOGIN CONTENT 14.6 G/DL (14-18); INSTRUMENT SERIAL # 11843; METHEMOGLOBIN 0.5 % (0-3); O2 CONTENT 20.1 VOL% (18-24); OPERATOR ID 32193; PCO2 (CO2 TENSION) 42 MMHG (35-45); PO2 (O2 TENSION) 117 MMHG (79-93); SAMPLE Arterial; pH 7.34 (7.37-7.43)
[2016-07-22 03:31] LABS: BASOPHILS 0.1 %; BASOPHILS ABSOLUTE 0.01 10/3/uL (0.0-0.16); EOSINOPHILS 0 %; HEMATOCRIT 39.4 % (40.0-51.0); HEMOGLOBIN 13.7 g/dL (13.6-17.8); IMMATURE GRANULOCYTES 0.6 %; IMMATURE GRANULOCYTES ABSOLUTE 0.08 10/3/uL (0.0-0.11); LYMPHOCYTES 4.6 %; LYMPHOCYTES ABSOLUTE 0.64 10/3/uL (0.67-4.30); MANUAL DIFF NO %; MEAN CORPUS HGB CONC 34.8 g/dL (32.0-36.0); MEAN CORPUSCULAR VOLUME 94.9 fL (80-100); MEAN PLATELET VOLUME 10.8 fL (9.2-13.0); MONOCYTES 5.7 %; NEUTROPHILS ABSOLUTE 12.39 10/3/uL (2.02-8.40); PLATELET COUNT 157 10/3/uL (150-400); RBC DISTRIBUTION WIDTH 12.5 % (12.0-16.0); RED CELL COUNT 4.15 10/6/uL (4.7-6.1); WHITE BLOOD CELLS 13.9 10/3/uL (4.5-10.5)
[2016-07-22 03:43] LABS: BUN (BLOOD UREA NITROGEN) 19 MG/DL (6-23); CALCIUM, SERUM 7.8 MG/DL (8.5-10.4); CHLORIDE, SERUM 113 MMOL/L (96-112); CREATININE 0.97 MG/DL (0.70-1.30); GFR AFRICAN AMERICAN 92 ML/MIN (>=60); GFR NON AFRICAN AMERICAN 79 ML/MIN (>=60); GLUCOSE, SERUM 100 MG/DL (60-99); POTASSIUM, SERUM 4.2 MMOL/L (3.5-5.3); SODIUM, SERUM 145 MMOL/L (135-148)
[2016-07-22 03:48] LABS: CO2 (CARBON DIOXIDE) 23 MMOL/L (24-34)
[2016-07-22 20:32] LABS: HEMATOCRIT 39.4 % (40.0-51.0); HEMOGLOBIN 13.1 g/dL (13.6-17.8)
[2016-07-23 03:51] LABS: HEMATOCRIT 37.2 % (40.0-51.0); HEMOGLOBIN 12.6 g/dL (13.6-17.8); MEAN CORPUS HGB CONC 33.9 g/dL (32.0-36.0); MEAN CORPUSCULAR HEMOGLOB 32.6 pg (26.0-34.0); MEAN CORPUSCULAR VOLUME 96.1 fL (80-100); MEAN PLATELET VOLUME 10.9 fL (9.2-13.0); PLATELET COUNT 168 10/3/uL (150-400); RBC DISTRIBUTION WIDTH 12.8 % (12.0-16.0); RED CELL COUNT 3.87 10/6/uL (4.7-6.1); WHITE BLOOD CELLS 16.4 10/3/uL (4.5-10.5)
[2016-07-23 03:56] LABS: MANUAL DIFF YES %
[2016-07-23 04:03] LABS: BUN (BLOOD UREA NITROGEN) 22 MG/DL (6-23); CALCIUM, SERUM 8.5 MG/DL (8.5-10.4); CREATININE 1.03 MG/DL (0.70-1.30); GFR AFRICAN AMERICAN 86 ML/MIN (>=60); GFR NON AFRICAN AMERICAN 74 ML/MIN (>=60); POTASSIUM, SERUM 4.7 MMOL/L (3.5-5.3)
[2016-07-23 04:05] LABS: CHLORIDE, SERUM 102 MMOL/L (96-112); CO2 (CARBON DIOXIDE) 28 MMOL/L (24-34); GLUCOSE, SERUM 153 MG/DL (60-99); SODIUM, SERUM 134 MMOL/L (135-148)
[2016-07-23 04:22] LABS: BAND NEUTROPHILS 3 %; LYMPHOCYTES 11 %; MONOCYTES 6 %; MONOCYTES ABSOLUTE (CALC) 0.98 10/3/uL (0.21-1.20); NEUTROPHILS ABSOLUTE (CALC) 13.61 10/3/uL (2.02-8.40); PLATELET ESTIMATE ADQ (ADEQUATE); RBC MORPHOLOGY NORM (NORMAL); SEGMENTED NEUTROPHIL (0) 80 %; TOTAL NUCLEATED CELLS 100
[2016-07-23 04:23] LABS: GIANT PLATELET RARE
[2016-07-24 05:30] LABS: BASOPHILS 0 %; EOSINOPHILS 0.1 %; EOSINOPHILS ABSOLUTE 0.02 10/3/uL (0.0-0.53); HEMATOCRIT 37.3 % (40.0-51.0); HEMOGLOBIN 12.5 g/dL (13.6-17.8); IMMATURE GRANULOCYTES 0.3 %; IMMATURE GRANULOCYTES ABSOLUTE 0.04 10/3/uL (0.0-0.11); LYMPHOCYTES 5.1 %; LYMPHOCYTES ABSOLUTE 0.69 10/3/uL (0.67-4.30); MEAN CORPUS HGB CONC 33.5 g/dL (32.0-36.0); MEAN CORPUSCULAR HEMOGLOB 31.8 pg (26.0-34.0); MEAN CORPUSCULAR VOLUME 94.9 fL (80-100); MONOCYTES 7.1 %; MONOCYTES ABSOLUTE 0.96 10/3/uL (0.21-1.20); NEUTROPHILS 87.4 %; NEUTROPHILS ABSOLUTE 11.87 10/3/uL (2.02-8.40); PLATELET COUNT 165 10/3/uL (150-400); RBC DISTRIBUTION WIDTH 12.4 % (12.0-16.0); RED CELL COUNT 3.93 10/6/uL (4.7-6.1); WHITE BLOOD CELLS 13.6 10/3/uL (4.5-10.5)
[2016-07-24 05:32] LABS: MANUAL DIFF NO %
[2016-07-24 05:42] LABS: CALCIUM, SERUM 8.5 MG/DL (8.5-10.4); CHLORIDE, SERUM 103 MMOL/L (96-112); CO2 (CARBON DIOXIDE) 28 MMOL/L (24-34); CREATININE 0.82 MG/DL (0.70-1.30); GFR AFRICAN AMERICAN 105 ML/MIN (>=60); GFR NON AFRICAN AMERICAN 90 ML/MIN (>=60); GLUCOSE, SERUM 162 MG/DL (60-99); POTASSIUM, SERUM 4.4 MMOL/L (3.5-5.3); SODIUM, SERUM 135 MMOL/L (135-148)
[2016-07-24 05:43] LABS: BUN (BLOOD UREA NITROGEN) 17 MG/DL (6-23)
[2016-07-25 06:21] LABS: BASOPHILS 0.1 %; BASOPHILS ABSOLUTE 0.01 10/3/uL (0.0-0.16); EOSINOPHILS 1.3 %; EOSINOPHILS ABSOLUTE 0.13 10/3/uL (0.0-0.53); HEMATOCRIT 35.3 % (40.0-51.0); IMMATURE GRANULOCYTES 0.2 %; IMMATURE GRANULOCYTES ABSOLUTE 0.02 10/3/uL (0.0-0.11); LYMPHOCYTES 15.1 %; MEAN CORPUSCULAR HEMOGLOB 32.3 pg (26.0-34.0); MEAN CORPUSCULAR VOLUME 95.1 fL (80-100); MEAN PLATELET VOLUME 11.1 fL (9.2-13.0); MONOCYTES 7.3 %; MONOCYTES ABSOLUTE 0.72 10/3/uL (0.21-1.20); NEUTROPHILS ABSOLUTE 7.54 10/3/uL (2.02-8.40); PLATELET COUNT 201 10/3/uL (150-400); RBC DISTRIBUTION WIDTH 12.6 % (12.0-16.0); RED CELL COUNT 3.71 10/6/uL (4.7-6.1); WHITE BLOOD CELLS 9.9 10/3/uL (4.5-10.5)
[2016-07-25 06:24] LABS: BUN (BLOOD UREA NITROGEN) 18 MG/DL (6-23); CALCIUM, SERUM 8.4 MG/DL (8.5-10.4); CHLORIDE, SERUM 103 MMOL/L (96-112); CO2 (CARBON DIOXIDE) 31 MMOL/L (24-34); CREATININE 0.73 MG/DL (0.70-1.30); GFR AFRICAN AMERICAN 110 ML/MIN (>=60); GFR NON AFRICAN AMERICAN 95 ML/MIN (>=60); GLUCOSE, SERUM 130 MG/DL (60-99); SODIUM, SERUM 138 MMOL/L (135-148)
[2016-07-25 06:26] LABS: MANUAL DIFF NO %
[2016-07-25] MEDS ORDERED: LIPITOR40 (10:47)
[2016-07-25] MEDS ORDERED: PLAVIX PO (10:48)
[2016-07-25] MEDS ORDERED: LOP25 PO (10:49)
[2016-07-25] MEDS ORDERED: NORCO1 TAB PO (10:49)
== END 2016-07-25 14:15 | disposition home or self-care (01) | DRG 234 ==
LOC: ER 13:25 → SSU2 14:32 → CCU 16:31 → CVICU 07-21 15:41 → 5NO 07-23 12:25
PROVIDERS: Emergency Medicine; Internal Medicine Cardiovascular Disease; Nurse Practitioner Family; Thoracic Surgery (Cardiothoracic Vascular Surgery)
PROC: 4A023N7 Measurement of Cardiac Sampling and Pressure, Left Heart, Percutaneous Approach (ICD-10-PCS; principal; 2016-07-18)
PROC: 02100Z8 Bypass Coronary Artery, One Artery from Right Internal Mammary, Open Approach (ICD-10-PCS; 2016-07-18)
PROC: B2111ZZ Fluoroscopy of Multiple Coronary Arteries using Low Osmolar Contrast (ICD-10-PCS; 2016-07-18)
PROC: B2151ZZ Fluoroscopy of Left Heart using Low Osmolar Contrast (ICD-10-PCS; 2016-07-18)
PROC: 02100Z9 Bypass Coronary Artery, One Artery from Left Internal Mammary, Open Approach (ICD-10-PCS; 2016-07-18)
PROC: B2131ZZ Fluoroscopy of Multiple Coronary Artery Bypass Grafts using Low Osmolar Contrast (ICD-10-PCS; 2016-07-18)
PROC: 0PH004Z Insertion of Internal Fixation Device into Sternum, Open Approach (ICD-10-PCS; 2016-07-18)
PROC: 02NN0ZZ Release Pericardium, Open Approach (ICD-10-PCS; 2016-07-21)
PROC: B246ZZ4 Ultrasonography of Right and Left Heart, Transesophageal (ICD-10-PCS; 2016-07-21)
PROC: 5A1221Z Performance of Cardiac Output, Continuous (ICD-10-PCS; 2016-07-21)
DX: I21.4 Non-ST elevation (NSTEMI) myocardial infarction (principal); I31.0 Chronic adhesive pericarditis; I25.810 Atherosclerosis of coronary artery bypass graft(s) without angina pectoris; J98.11 Atelectasis; I10 Essential (primary) hypertension; E78.5 Hyperlipidemia, unspecified; Z95.1 Presence of aortocoronary bypass graft
CPT/HCPCS: 36415; 71010; 71020; 71275; 80048; 80053; 80061; 81001; 82330; 82550; 82553; 82565; 82803; 82805; 82947; 82962; 83036; 83735; 84132; 84295; 84484; 85014; 85018; 85025; 85049; 85347; 85384; 85390; 85576; 85610; 85730; 86850; 86900; 86901; 86920; 87641; 93005; 93306; 93312; 93320; 93325; 93459; 93880; 94002; 94640; 94660; 94667; 94668; 94770; 96365; 99152; 99153; 99285; A9270-GY; C1713; C1751; C1760; C1769; C1894; G0365; J0583; J0690; J1644; J1940; J2150; J2250; J2370; J2405; J2440; J2720; J3010; J3370; J3475; J3480; P9045; P9047; Q9967